=== PATIENT | male | born 1945 | race Two or more races ===

== ENCOUNTER 2023-08-03 09:39 | Emergency (ER) | payer OTHER ==
[~2023-08-03] VITALS: Ht 162.6 cm; Wt 79.4 kg
[~2023-08-03 09:39] MED LIST: NABUMETONE750 MG PO; ORPH100T PO
[2023-08-03] MEDS ORDERED: LORAZEPAM0.5 MG PO (10:27)
[2023-08-03] MEDS ORDERED: MECLIZINE HCL25 MG PO (10:27)
[2023-08-03] MEDS ORDERED: SERTRALINE HCL100 MG PO (10:28)
[2023-08-03] MEDS ORDERED: LOSARTAN POTASS50 MG PO (10:28)
[2023-08-03] MEDS ORDERED: MONTELUKAST SOD10 MG PO (10:28)
[2023-08-03] MEDS ORDERED: LEVOTHYROXINE100 MCG PO (10:28)
[2023-08-03] MEDS ORDERED: ANORO ELLIPTA1 EACH IH (10:29)
[2023-08-03] MEDS ORDERED: PREDNISONE10 M2 PO (10:29)
[2023-08-03 11:29] LABS: HEMATOCRIT 49.5 % (39.0-48.0); HEMOGLOBIN 16.4 g/dL (13-16.00); MEAN CELL VOLUME 80.5 fL (80.0-100.00); MEAN CORPUSCULAR HEMOGLOBIN 26.6 pg (27.00-32.0); PLATELET COUNT 179 K/uL (150-450); RED BLOOD COUNT 6.15 M/uL (4.00-6.00); RED CELL DISTRIBUTION WIDTH 15.1 % (11.5-14.5)
[2023-08-03 11:51] LABS: INR 1.04; PARTIAL THROMBOPLASTIN TIME 31.3 SECONDS (22.0-34.0); PROTHROMBIN TIME 10.9 SECONDS (9.0-11.5)
[2023-08-03 11:54] LABS: ALBUMIN 3.8 gm/dL (3.4-5.0); BILIRUBIN TOTAL 1.03 mg/dL (0.3-1.2); CREATININE SERUM 0.73 mg/dL (0.70-1.30); GFR 103.64; GLOBULINA 3.1 G/DL (2.4-3.5); POTASSIUM 4.55 mEq/L (3.5-5.1); TOTAL PROTEIN 6.9 gm/dL (6.4-8.2)
[2023-08-03 12:22] LABS: ABG PH 7.416 (7.35-7.45); ABG PO2 77.1 mmHg (80-100); ABG pCO2 43.7 mmHg (35-45); BASE EXCESS 2.5 mmol/l; BICARBONATE 27.4 mmol/l (23-25); SaO2 95.5 %; Tco2 28.8 mmol/l; allen test SATISFACTORY; o2 21 %; puncture site RADIAL RIGHT
== END 2023-08-03 17:19 | disposition home or self-care (01) ==
LOC: ER 09:40
PROVIDERS: Emergency Medicine
DX: J44.1 Chronic obstructive pulmonary disease with (acute) exacerbation (principal); I10 Essential (primary) hypertension; Z87.891 Personal history of nicotine dependence
CPT/HCPCS: 36415; 71046; 82803; 93005; 93041; 94640; 96365; 99284; J2930